=== PATIENT | female | born 1950 | race Caucasian/White ===

== ENCOUNTER → 2018-02-14 | Outpatient (CLI) | payer MEDICARE ==
--- NOTE | 2018-02-14 16:08 | XR ---
EXAMINATION TYPE: XR chest 2V DATE OF EXAM: 02/14/2018 COMPARISON: NONE HISTORY: Nicotine dependence TECHNIQUE: Frontal and lateral views of the chest are obtained. FINDINGS: There is no focal air space opacity, pleural effusion, or pneumothorax seen. The cardiac silhouette size is within normal limits. The osseous structures are intact. IMPRESSION: No acute cardiopulmonary process.
== END | disposition home or self-care (01) ==
LOC: RADXRMAIN 13:18
PROVIDERS: ATTEND Physician Assistant
DX: F17.200 Nicotine dependence, unspecified, uncomplicated (principal)
CPT/HCPCS: 71046

== ENCOUNTER → 2019-05-02 | Outpatient (CLI) | payer MEDICARE ==
--- NOTE | 2019-05-02 16:35 | XR ---
EXAMINATION TYPE: XR chest 2V DATE OF EXAM: 05/02/2019 COMPARISON: Prior chest x-ray 02/14/2018 HISTORY: Chest contusion, right-sided pain TECHNIQUE: Frontal and lateral views of the chest are obtained. FINDINGS: There is no focal air space opacity, pleural effusion, or pneumothorax seen. The cardiac silhouette size is within normal limits. The osseous structures are intact. IMPRESSION: No acute cardiopulmonary process.
== END | disposition home or self-care (01) ==
LOC: RADXRMAIN 10:38
PROVIDERS: ATTEND Physician Assistant
DX: S20.20XA Contusion of thorax, unspecified, initial encounter (principal)
CPT/HCPCS: 71046

== ENCOUNTER → 2019-12-21 | Outpatient (CLI) | payer MEDICARE | END | disposition home or self-care (01) | LOC: LABWHC1 08:53 | PROVIDERS: ATTEND Family Medicine | DX: Z20.828 Contact with and (suspected) exposure to other viral communicable diseases (principal) | CPT/HCPCS: U0003; C9803 ==

== ENCOUNTER → 2020-02-27 | Outpatient (CLI) | payer MEDICARE ==
--- NOTE | 2020-02-27 15:32 | XR ---
EXAMINATION TYPE: XR hand complete bilateral DATE OF EXAM: 02/27/2020 COMPARISON: NONE HISTORY: Pain TECHNIQUE: Three views of each hand are submitted. FINDINGS: Mild narrowing of the DIP joints of all digits noted with more moderate changes involving the fifth D IP of the right hand. There are no erosive changes. There is severe arthropathy of the first carpal m etacarpal joint of both hands. Mild radiocarpal arthropathy noted. IMPRESSION: 1. Severe first carpal metacarpal arthropathy bilaterally in a distribution most typical of osteoarth ritis.
--- NOTE | 2020-02-27 15:33 | XR ---
EXAMINATION TYPE: XR Hip Bilateral and AP pelvis DATE OF EXAM: 02/27/2020 COMPARISON: NONE HISTORY: Pain TECHNIQUE: A single AP view of the pelvis is obtained. Two views of the bilateral hip are obtained. FINDINGS: There is moderate concentric narrowing of the hip joint bilaterally. No erosive changes. D iffuse osteopenia. Osteitis pubis condensans. SI joints symmetric. No acute fracture or dislocation. IMPRESSION: 1. Diffuse osteopenia. 2. Moderate arthropathy and axial direction of the hip bilaterally. No erosive changes. Correlate for femoral acetabular impingement.
--- NOTE | 2020-02-27 15:38 | XR ---
EXAMINATION TYPE: XR cervical spine comp DATE OF EXAM: 02/27/2020 COMPARISON: NONE HISTORY: Pain TECHNIQUE: Four views are submitted. FINDINGS: The odontoid is intact. There are no compression deformities. The prevertebral soft tissue structur es are within normal limits. There is multilevel severe degenerative disc disease most marked at lev els C4-C7. There is a posterior spondylosis particularly noted at C5 4-5 and C5-C6 likely resulting i n degree of Canal stenosis. Multilevel foraminal encroachment are noted bilaterally. Slight curvature of the cervical thoracic spine. There is a slight anterolisthesis of C7 relative to T1. IMPRESSION: 1. Multilevel severe degenerative disc disease, facet arthropathy and posterior spondylosis. There is bilateral foraminal encroachment at virtually all levels with suspected canal stenosis at C4-5 and C 5-6. Consider MRI.
--- NOTE | 2020-02-27 15:39 | XR ---
EXAM TYPE: LUMBAR SPINE X RAY SERIES COMPARISON: NONE HISTORY: Pain TECHNIQUE: 3 views are submitted. FINDINGS: Alignment is anatomic. The pedicles are intact. The transverse processes are intact. There is diff use osteopenia. There is multilevel moderate degenerative disc disease most marked at levels T12-L3. Severe facet arthropathy at L5-S1 likely result in foraminal encroachment. No compression deformities . IMPRESSION: 1. Diffuse osteopenia with multilevel degenerative disc disease. Most marked involving the thoracolum bar junction and upper lumbar spine. 2. Severe facet arthropathy L5-S1 with suspected foraminal encroachment.
== END | disposition home or self-care (01) ==
LOC: RADXRMAIN 14:34
PROVIDERS: ATTEND Family Medicine
DX: M50.321 Other cervical disc degeneration at C4-C5 level (principal); M51.36 Other intervertebral disc degeneration, lumbar region; M47.812 Spondylosis without myelopathy or radiculopathy, cervical region; M47.817 Spondylosis without myelopathy or radiculopathy, lumbosacral region; M85.88 Other specified disorders of bone density and structure, other site; M19.041 Primary osteoarthritis, right hand
CPT/HCPCS: 72050; 72100; 73521

== ENCOUNTER → 2020-04-03 | Outpatient (CLI) | payer MEDICARE ==
--- NOTE | 2020-04-03 22:50 | MR ---
EXAMINATION TYPE: MR cspine/lspine wo con DATE OF EXAM: 04/03/2020 COMPARISON: Cervical and Lumbar spine x-ray February 27, 2020. HISTORY: Neck and lower back pain, radiates into both hips TECHNIQUE: Multiplanar, multisequence imaging of the cervical and lumbar spine are performed without IV contrast. FINDINGS: C-SPINE: FINDINGS: Coronal images show slight levoconvex scoliosis centered in the mid to lower cervical spine . Sagittal images of the cervical spine show the craniocervical junction to appear within normal limi ts. There is some generalized canal diameter narrowing with some AP cord diameter narrowing at severa l levels, no abnormal cord signal noted. There is slight grade 1 anterolisthesis C4 on C5 with more p rominent grade 1 retrolisthesis C5 on C6 and C6 on C7. The vertebral body heights are normal. Modera te to advanced disc space narrowing and spurring C4-C5 through C6-C7 levels. Heterogeneous moderate t ype II endplate changes anterior C6-C7 level with more heterogeneous Modic type I and III changes not ed at C4-C5 and C5-C6 levels. Axial images at C2-C3 level levels show uncovertebral facet degenerative change on the left causing m ild narrowing. Axial images at C3-C4 level shows broad-based posterior disc protrusion effacing anterior thecal sac up to ventral surface of spinal cord which is slightly indented, there is uncovertebral facet degener ative changes bilaterally with mild left greater than right neural foraminal narrowing. Axial images at C4-C5 level showed broad based posterior disc protrusion effacing anterior thecal sac up to ventral surface of the spinal cord which is slightly flattened and causing advanced right and moderate to advanced left-sided neural foraminal narrowing due to uncovertebral and facet spurring. Axial images at the C5-C6 level show spondylitic listhesis with broad-based posterior disc protrusion effacing anterior thecal sac up to ventral surface of spinal cord with moderate to advanced bilatera l neural foraminal narrowing. Axial images at C6-C7 level show spondylolisthesis with broad-based posterior disc protrusion facing anterior thecal sac up to ventral surface of spinal cord and causing advanced left and mild right-kathi ed neural foraminal narrowing. Axial images at C7-T1 level are within normal limits. IMPRESSION: Multilevel spondylolisthesis and degenerative changes in the cervical spine greatest C3-C 4 through the C6-C7 levels. Most prominent spinal canal stenosis noted C4-C5 level. Further details a s discussed above. L-SPINE: Sagittal images of the lumbar spine show vertebral body heights and alignment to appear satisfactory. Multilevel disc desiccation with disc space heights are fairly well maintained. The conus medullari s is normal in position and signal ending at mid L1 level. The bone marrow signal intensity is withi n normal limits. Mild anterior spurring in the upper lumbar spine. Axial images at T12-L1 level show mild broad disc bulge mildly effaces the anterior thecal sac with m ild facet arthropathy and ligamentum flavum hypertrophy effacing posterior lateral thecal sac. Patent bilateral neural foramina. Axial images at L1-L2 level mild facet arthropathy bilaterally. Axial images at L2-L3 level are within normal limits. Axial images at L3-L4 level show [id number] facet arthropathy and ligament flavum hypertrophy e ffacing posterior lateral thecal sac on image 13. Patent bilateral neural foramina. Axial images at L4-L5 level moderate facet degenerative changes the ligamenta flava hypertrophy. Mild broad disc bulge is present. Patent bilateral neural foramina. Axial images at the L5-S1 levels mild/moderate facet arthropathy bilaterally. Spinal canal is preserv ed. Patent bilateral neural foramina. There are subcentimeter rounded T2 hyperintense lesions seen throughout the visualized liver felt to reflect thin-walled cysts. Paraspinal muscle bulk is preserved. IMPRESSION: [id number] multilevel degenerative changes in the lumbar spine as detailed above.
== END | disposition home or self-care (01) ==
LOC: RADMRIMAIN 19:18
PROVIDERS: ATTEND Family Medicine
DX: M48.02 Spinal stenosis, cervical region (principal); M99.71 Connective tissue and disc stenosis of intervertebral foramina of cervical region; M50.21 Other cervical disc displacement, high cervical region; M43.12 Spondylolisthesis, cervical region; M47.812 Spondylosis without myelopathy or radiculopathy, cervical region; M47.816 Spondylosis without myelopathy or radiculopathy, lumbar region; M47.817 Spondylosis without myelopathy or radiculopathy, lumbosacral region; M47.815 Spondylosis without myelopathy or radiculopathy, thoracolumbar region; M41.82 Other forms of scoliosis, cervical region
CPT/HCPCS: 72141; 72148

== ENCOUNTER → 2020-04-24 | Outpatient (CLI) | payer MEDICARE ==
--- NOTE | 2020-04-24 11:56 | US ---
EXAMINATION TYPE: US liver DATE OF EXAM: 04/24/2020 COMPARISON: NONE CLINICAL HISTORY: K76.9 liver disease, unspecified. EXAM MEASUREMENTS: Liver Length: 14.3 cm Gallbladder Wall: 0.1 cm CBD: 0.5 cm Right Kidney: 9.9 x 3.3 x 4.7 cm Pancreas: partially obscured by bowel gas Liver: small liver cysts noted, largest measuring 2.0 x 0.9 x 1.5cm and 0.8 x 0.7 x 1.0cm Gallbladder: wnl Evidence for sonographic Pastrana's sign: no CBD: wnl Right Kidney: No hydronephrosis or masses seen There is no ascites. IMPRESSION: The liver echotexture is somewhat coarse which may be indicative of underlying hepatocell ular disease. Liver may be enlarged, measurement is thought to be under represented. There are liver cysts present.
== END | disposition home or self-care (01) ==
LOC: RADUSWWP 08:20
PROVIDERS: ATTEND Family Medicine
DX: K76.89 Other specified diseases of liver (principal); R93.2 Abnormal findings on diagnostic imaging of liver and biliary tract
CPT/HCPCS: 76705

== ENCOUNTER → 2020-05-13 | Outpatient (CLI) | payer MEDICARE ==
--- NOTE | 2020-05-13 15:39 | BD ---
EXAMINATION TYPE: Axial Bone Density DATE OF EXAM: 05/13/2020 COMPARISON: NONE CLINICAL HISTORY: Height: 62 Weight: 161.4 FRAX RISK QUESTIONS: Alcohol (3 or more units per day): no Family History (Parent hip fracture): no Glucocorticoids (More than 3mos): no (Ex: prednisone, prednisolone, methylprednisolone, dexamethasone, and hydrocortisone). History of Fracture in Adulthood: yes Secondary Osteoporosis: 1. Type 1 Diabetes: no 2. Hyperthyroidism: no 3. Menopause before 45: yes 4. Malnutrition: no 5. Chronic liver disease: no Rheumatoid Arthritis: no Current Tobacco Use: yes RISK FACTORS HISTORY OF: History of Wrist Fracture: left When: 10 years ago Family History of Osteoporosis: no Active: yes Diet low in dairy products/other sources of calcium: yes Postmenopausal woman: hysterectomy age 40 Lost more than 2 inches in height since high school: no MEDICATIONS: cholesterol, blood pressure, anti depressant Additional History: EXAM MEASUREMENTS: Bone mineral densitometry was performed using the [employer]. Bone mineral density as measured about the Lumbar spine is: ----- L1-L4(G/cm2): 1.089 T Score Values are as follows: ----- L2: -0.7 ----- L3: -0.7 ----- L4: -1.0 ----- L1-L4: -0.8 Bone mineral density : baseline Bone mineral density about the R hip (g/cm2): 1.052 Bone mineral density about the L hip (g/cm2): 0.909 T Score values are as follows: -----R Neck: 0.1 -----L Neck: -0.9 -----R Total: 0.2 -----L Total: -0.2 Bone mineral density : baseline IMPRESSION: No evidence for osteoporosis or osteopenia. NOTE: T-SCORE=SD OF THE YOUNG ADULT MEAN.
--- NOTE | 2020-05-21 09:37 | MM ---
Reason for exam: screening (asymptomatic). Last mammogram was performed 5 years and 5 months ago. History: Patient is postmenopausal. Physical Findings: A clinical breast exam by your physician is recommended on an annual basis and results should be correlated with mammographic findings. MG 3D Screening Mammo W/Cad Bilateral CC and MLO view(s) were taken. Prior study comparison: December 12, 2014, mammogram, performed at [place]. September 08, 2011, mammogram, performed at [place]. There are scattered fibroglandular densities. There is chronic nodularity bilaterally. There is no discrete abnormality. ASSESSMENT: Benign, BI-RAD 2 RECOMMENDATION: Routine screening mammogram of both breasts in 1 year.
== END | disposition home or self-care (01) ==
LOC: RADMAMWWP 14:27
PROVIDERS: ATTEND Family Medicine
DX: Z12.31 Encounter for screening mammogram for malignant neoplasm of breast (principal); Z78.0 Asymptomatic menopausal state
CPT/HCPCS: 77063; 77067; 77080

== ENCOUNTER → 2020-06-20 | Outpatient (CLI) | payer MEDICARE ==
[2020-06-21 01:31] LABS: ALT 23 U/L (8-44); AST 17 U/L (13-35); Albumin/Globulin Ratio 2.67 (1.60-3.17); Alkaline Phosphatase 164 U/L (41-126); Bilirubin, Conjugated <0.20 mg/dL (0.20-0.40); GGT <15 U/L (0-38); Globulin 1.8 g/dL (1.6-3.3); Total Bilirubin 0.3 mg/dL (0.3-1.2); Total Protein 6.6 g/dL (6.2-8.2)
[2020-06-21 03:33] LABS: Hepatitis B Surface Antigen Non-Reactive (Non-Reactive); Hepatitis C IgG Antibody Non-Reactive (Non-Reactive)
== END | disposition home or self-care (01) ==
LOC: LABWHC1 14:41
PROVIDERS: ATTEND Nurse Practitioner
DX: R74.8 Abnormal levels of other serum enzymes (principal)
CPT/HCPCS: 36415; 80076; 82977; 83516; 86803; 87340

== ENCOUNTER → 2020-07-19 | Outpatient (CLI) | payer MEDICARE | END | disposition home or self-care (01) | LOC: LABWHC1 11:51 | PROVIDERS: ATTEND Nurse Practitioner | DX: R74.8 Abnormal levels of other serum enzymes (principal) | CPT/HCPCS: 36415 ==

== ENCOUNTER → 2021-03-27 | Outpatient (CLI) | payer MEDICARE ==
--- NOTE | 2021-03-27 10:41 | US ---
EXAMINATION TYPE: US duplex aorta DATE OF EXAM: 03/27/2021 COMPARISON: NONE CLINICAL HISTORY: Z13.6 Encounter for screening for cardiovascular. Current smoker. No HTN. No chol esterol. No family history of AAA. EXAM MEASUREMENTS: Abdominal Aorta: Proximal: 2.1 x 2.3 cm Mid: 1.2 x 1.3 cm Distal: 1.3 x 1.1 cm Bifurcation: Right- 0.9 x 0.6 cm Left- 1.0 x 0.6 cm No AAA visualized at time of scan. Aorta is Successfully visualized through the bifurcation. IMPRESSION: No ultrasound evidence for greater than 3.0 cm AAA
== END | disposition home or self-care (01) ==
LOC: RADUSWWP 07:05
PROVIDERS: ATTEND Family Medicine
DX: Z13.6 Encounter for screening for cardiovascular disorders (principal)
CPT/HCPCS: 93979

== ENCOUNTER → 2021-05-15 | Outpatient (CLI) | payer MEDICARE ==
--- NOTE | 2021-05-19 11:55 | MM ---
Reason for exam: screening (asymptomatic). Last mammogram was performed 1 year ago. History: Patient is postmenopausal. Physical Findings: A clinical breast exam by your physician is recommended on an annual basis and results should be correlated with mammographic findings. MG 3D Screening Mammo W/Cad Bilateral CC and MLO view(s) were taken. Prior study comparison: May 13, 2020, bilateral MG 3d screening mammo w/cad. There are scattered fibroglandular densities. Asymmetry posterior central right MLO is more defined. ASSESSMENT: Incomplete: need additional imaging evaluation, BI-RAD 0 RECOMMENDATION: Special view mammogram of the right breast. (3D) If lesion persists on supplemental views, image directed ultrasound is recommended. [facility] will attempt to contact patient to return for supplemental views and ultrasound if indicated.
== END | disposition home or self-care (01) ==
LOC: RADMAMWWP 08:52
PROVIDERS: ATTEND Family Medicine
DX: Z12.31 Encounter for screening mammogram for malignant neoplasm of breast (principal); Z78.0 Asymptomatic menopausal state
CPT/HCPCS: 77063; 77067

== ENCOUNTER 2021-06-25 15:05 | Emergency (ER) | payer MEDICARE ==
[2021-06-25] MEDS ORDERED: SODIUM CHLORIDE 0.9% 1,000 ML IV STA ×2 (15:50→16:46)
[2021-06-25] MEDS ORDERED: ONDANSETRON 4 MG/2 ML VIAL IVP STA (15:50)
[2021-06-25] MEDS ORDERED: diphenhydrAMINE 50 MG/ML 1 ML VIAL IVP STA (15:50)
[2021-06-25] MEDS ORDERED: MAG HYDROX/AL HYDROX/SIMETH 30 ML CUP PO STA (15:51)
[2021-06-25] MEDS ORDERED: FAMOTIDINE 20 MG/2 ML VIAL IV STA (15:52)
--- NOTE | 2021-06-25 16:04 | ED ---
General Adult HPI - General Chief complaint: Nausea/Vomiting/Diarrhea Stated complaint: vomiting Time Seen by Provider: 06/25/21 15:23 Source: patient, RN notes reviewed, old records reviewed Mode of arrival: ambulatory Limitations: no limitations - History of Present Illness Initial comments: Patient is a 71-year-old female with past medical history remarkable for tobacco use, hypertension presents emergency Department complaining of nausea, vomiting, respiratory symptoms. Patient had upper respiratory symptoms since last Wednesday. She has been tested for Covid twice. Once it was negative, and the second one is still pending. She was not vaccinated for COVID-19. States that for the last 2-3 days, she has been having nausea and nonbilious emesis as well. This is her multiple times. She states "I cannot hold anything down." Presents over concern for dehydration. She denies any chest pain, shortness breath, abdominal pain, diarrhea, urinary complaints. Denies any headaches. Does endorse some mild fatigue. His no other acute complaints at this time. She does have upper respiratory symptoms, including a cough productive of green sputum as well as nasal congestion. - Related Data Home Medications Medication Instructions Recorded Confirmed Atorvastatin Calcium [Lipitor] 20 mg PO DAILY 06/25/21 06/25/21 Calcium Carbonate [Calcium] 600 mg PO DAILY 06/25/21 06/25/21 Celecoxib [CeleBREX] 200 mg PO HS 06/25/21 06/25/21 Multivitamins, Thera [Multivitamin 1 tab PO DAILY 06/25/21 06/25/21 (formulary)] Venlafaxine HCl ER [Effexor Xr] 150 mg PO DAILY 06/25/21 06/25/21 hydroCHLOROthiazide 25 mg PO DAILY 06/25/21 06/25/21 lisinopriL [Zestril] 20 mg PO DAILY 06/25/21 06/25/21 Previous Rx's Medication Instructions Recorded Albuterol Inhaler [Ventolin Hfa 1 puff INHALATION RT-QID #8 gm 06/25/21 Inhaler] Doxycycline Hyclate 100 mg PO BID 7 Days #14 capsule 06/25/21 Ondansetron Odt [Zofran Odt] 4 mg PO Q8HR PRN #3 tab 06/25/21 predniSONE [Deltasone] 40 mg PO DAILY 5 Days #10 tab 06/25/21 Allergies Allergy/AdvReac Type Severity Reaction Status Date / Time Penicillins AdvReac Nausea & Verified 06/25/21 16:02 Vomiting Review of Systems ROS Statement: Those systems with pertinent positive or pertinent negative responses have been documented in the HPI. Review of Systems: CONST: Denies fever EYES: Denies blurry vision ENT: Endorses nasal congestion C/V: Denies Chest pain RESP: Denies shortness of breath GI: Endorses nausea. Denies abdominal pain. : Denies dysuria SKIN: Denies rash. MSK: Denies joint pain. NEURO: Denies headache ROS Other: All systems not noted in ROS Statement are negative. Past Medical History Past Medical History: No Reported History History of Any Multi-Drug Resistant Organisms: None Reported Past Surgical History: Section, Hysterectomy Past Psychological History: Anxiety, Depression Smoking Status: Current every day smoker Past Alcohol Use History: None Reported Past Drug Use History: None Reported General Exam - General Exam Comments Initial Comments: General: Appears in no acute distress. HEAD: Normal with no signs of head trauma. EYES: PERRLA, EOMI, conjunctiva normal, no discharge. ENT: Hearing grossly intact, normal oropharynx. Nasal congestion. No sinus tenderness to palpation. Mildly dry mucous membranes. RESPIRATORY: Clear breath sounds bilaterally. No wheezes, rales, or rhonchi. Not hypoxic. No increased work of breathing. C/V: Regular rate and rhythm. S1 and S2 auscultated, no edema, peripheral pulses 2+ and intact throughout ABD: Abd is soft, nontender, nondistended. No guarding. No peritoneal signs. EXT: Normal range of motion, no obvious deformity SKIN: No rashes or lesions observed on exposed skin. NEURO: Alert and oriented 4. Limitations: no limitations Course Vital Signs 06/25/21 15:15 Temperature 98 F Pulse Rate 104 H Respiratory 18 Rate Blood Pressure 149/70 O2 Sat by Pulse 98 Oximetry Medical Decision Making - Medical Decision Making Based on the patient's presentation and physical exam, I'm concerned for infectious etiology for her current symptoms. However would like to obtain screening EKG in addition to abdominal laboratory studies to assess for dehydration. We also obtain a two-view chest x-ray. She'll be given a 1 L fluid bolus as well as IV Zofran, Pepcid, Benadryl and Maalox. She was in agreement this plan. We will check her for COVID-19 influenza as well. Chest x-ray shows no acute cardiopulmonary process. Laboratory studies are remarkable for a leukocytosis of 19.9, however she does appear to be hemoconcentrated likely secondary to dehydration as she also has a leukocytosis of 455, as well as an higher level hemoglobin of 13.5. Electrolytes are within normal limits. Alk phos is mildly elevated 145. LFTs are otherwise unremarkable. Normal bilirubin. Urinalysis unremarkable. Patient is Covid, flu negative. Remainder of the labs are unremarkable. On reevaluation, patient is feeling improved. She has tolerated by mouth intake. I did discuss with her abdomen. She was dehydrated. She likely has a viral syndrome as well as bronchitis. She was in agreement. She would like to go home. I believe this is reasonable. We will treat her for bronchitis with doxycycline and provide her with a dose prior to discharge. She was on a Z-Mina but she states this wasn't improving. I instructed her to stop taking the azithromycin. She also be given a dose of steroids prior to discharge, as well as a prescription for steroids, doxycycline, albuterol. She'll be given a prescription for ODT Zofran. She is no other acute complaints at this time. She went to go home. I'll provide her strict return precautions. I will provide the patient with a prescription for 40 mg prednisone daily for 5 days, doxycycline 100 mg twice a day for 7 days, albuterol inhaler, ODT Zofran. I instructed the patient to follow up with their PCP in the next 3 days. I explained that the patient should return to the emergency department if they experience any worsening symptoms. Strict return precautions were discussed with the patient. The patient expressed understanding of these instructions. I answered all questions that the patient had. The patient was discharged home in good condition with their prescriptions and follow up information. - Lab Data Result diagrams: 06/25/21 16:11 06/25/21 16:11 Lab Results 06/25/21 06/25/21 06/25/21 Range/Units 16:11 16:11 16:11 WBC 19.9 H (3.8-10.6) k/uL RBC 4.48 (3.80-5.40) m/uL Hgb 13.5 (11.4-16.0) gm/dL Hct 40.1 (34.0-46.0) % MCV 89.4 (80.0-100.0) fL MCH 30.1 (25.0-35.0) pg MCHC 33.6 (31.0-37.0) g/dL RDW 12.3 (11.5-15.5) % Plt Count 455 H (150-450) k/uL MPV 7.2 Neutrophils % 80 % Lymphocytes % 11 % Monocytes % 8 % Eosinophils % 0 % Basophils % 0 % Neutrophils # 15.8 H (1.3-7.7) k/uL Lymphocytes # 2.2 (1.0-4.8) k/uL Monocytes # 1.5 H (0-1.0) k/uL Eosinophils # 0.1 (0-0.7) k/uL Basophils # 0.1 (0-0.2) k/uL Sodium 140 (137-145) mmol/L Potassium 3.8 (3.5-5.1) mmol/L Chloride 105 (98-107) mmol/L Carbon Dioxide 23 (22-30) mmol/L Anion Gap 12 mmol/L BUN 22 H (7-17) mg/dL Creatinine 0.99 (0.52-1.04) mg/dL Est GFR (CKD-EPI)AfAm 67 (>60 ml/min/1.73 sqM) Est GFR (CKD-EPI)NonAf 58 (>60 ml/min/1.73 sqM) Glucose 137 H (74-99) mg/dL Calcium 9.6 (8.4-10.2) mg/dL Total Bilirubin 0.4 (0.2-1.3) mg/dL AST 29 (14-36) U/L ALT 20 (4-34) U/L Alkaline Phosphatase 145 H (38-126) U/L Total Protein 7.2 (6.3-8.2) g/dL Albumin 4.2 (3.5-5.0) g/dL Amylase 46 (30-110) U/L Lipase 90 (23-300) U/L Urine Color Urine Appearance (Clear) Urine pH (5.0-8.0) Ur Specific [place] (1.001-1.035) Urine Protein (Negative) Urine Glucose (UA) (Negative) Urine Ketones (Negative) Urine Blood (Negative) Urine Nitrite (Negative) Urine Bilirubin (Negative) Urine Urobilinogen (<2.0) mg/dL Ur Leukocyte Esterase (Negative) Urine RBC (0-5) /hpf Urine WBC (0-5) /hpf Ur Squamous Epith Cells (0-4) /hpf Urine Bacteria (None) /hpf Urine Mucus (None) /hpf Coronavirus (PCR) (Not Detectd) Influenza Type A RNA Not Detected (Not Detectd) Influenza Type B (PCR) Not Detected (Not Detectd) 06/25/21 06/25/21 Range/Units 16:11 17:14 WBC (3.8-10.6) k/uL RBC (3.80-5.40) m/uL Hgb (11.4-16.0) gm/dL Hct (34.0-46.0) % MCV (80.0-100.0) fL MCH (25.0-35.0) pg MCHC (31.0-37.0) g/dL RDW (11.5-15.5) % Plt Count (150-450) k/uL MPV Neutrophils % % Lymphocytes % % Monocytes % % Eosinophils % % Basophils % % Neutrophils # (1.3-7.7) k/uL Lymphocytes # (1.0-4.8) k/uL Monocytes # (0-1.0) k/uL Eosinophils # (0-0.7) k/uL Basophils # (0-0.2) k/uL Sodium (137-145) mmol/L Potassium (3.5-5.1) mmol/L Chloride (98-107) mmol/L Carbon Dioxide (22-30) mmol/L Anion Gap mmol/L BUN (7-17) mg/dL Creatinine (0.52-1.04) mg/dL Est GFR (CKD-EPI)AfAm (>60 ml/min/1.73 sqM) Est GFR (CKD-EPI)NonAf (>60 ml/min/1.73 sqM) Glucose (74-99) mg/dL Calcium (8.4-10.2) mg/dL Total Bilirubin (0.2-1.3) mg/dL AST (14-36) U/L ALT (4-34) U/L Alkaline Phosphatase (38-126) U/L Total Protein (6.3-8.2) g/dL Albumin (3.5-5.0) g/dL Amylase (30-110) U/L Lipase (23-300) U/L Urine Color Yellow Urine Appearance Cloudy H (Clear) Urine pH 7.5 (5.0-8.0) Ur Specific [place] 1.029 (1.001-1.035) Urine Protein 1+ H (Negative) Urine Glucose (UA) Negative (Negative) Urine Ketones Negative (Negative) Urine Blood Trace H (Negative) Urine Nitrite Negative (Negative) Urine Bilirubin Negative (Negative) Urine Urobilinogen 2.0 (<2.0) mg/dL Ur Leukocyte Esterase Negative (Negative) Urine RBC 8 H (0-5) /hpf Urine WBC 4 (0-5) /hpf Ur Squamous Epith Cells 6 H (0-4) /hpf Urine Bacteria Rare H (None) /hpf Urine Mucus Occasional H (None) /hpf Coronavirus (PCR) Not Detected (Not Detectd) Influenza Type A RNA (Not Detectd) Influenza Type B (PCR) (Not Detectd) - EKG Data -: EKG Interpreted by Me EKG Comments: 12-lead Electrocardiogram Interpretation Note EKG was reviewed and interpreted by myself. 12-lead ECG performed at 1632 is interpreted by me as revealing normal sinus rhythm at a rate of 87 beats per minute. [place] is normal. DC interval is 144 ms, QRS duration 60 ms, QTc is 466 ms.. There were no ST or T wave abnormalities to suggest myocardial ischemia or injury. R wave progression across the precordium was satisfactory. By my interpretation this EKG is non-diagnostic for acute ischemia. Disposition Clinical Impression: Bronchitis, Nausea and vomiting, Dehydration Disposition: HOME SELF-CARE Condition: Good Instructions (If sedation given, give patient instructions): Acute Bronchitis (ED), Acute Nausea and Vomiting (ED) Prescriptions: predniSONE [Deltasone] 40 mg PO DAILY 5 Days #10 tab Doxycycline Hyclate 100 mg PO BID 7 Days #14 capsule Albuterol Inhaler [Ventolin Hfa Inhaler] 1 puff INHALATION RT-QID #8 gm Ondansetron Odt [Zofran Odt] 4 mg PO Q8HR PRN #3 tab PRN Reason: Nausea Is patient prescribed a controlled substance at d/c from ED?: No Referrals: Darryl Fried MD [Primary Care Provider] - 1-2 days
[2021-06-25 16:21] LABS: Basophils # (A) 0.1 k/uL (0-0.2); Basophils % (A) 0 %; Eosinophils # (A) 0.1 k/uL (0-0.7); Eosinophils % (A) 0 %; HCT 40.1 % (34.0-46.0); HGB 13.5 gm/dL (11.4-16.0); Lymphocytes # (A) 2.2 k/uL (1.0-4.8); Lymphocytes % (A) 11 %; MCH 30.1 pg (25.0-35.0); MCHC 33.6 g/dL (31.0-37.0); MCV 89.4 fL (80.0-100.0); Mean Platelet Volume 7.2; Monocytes # (A) 1.5 k/uL (0-1.0); Monocytes % (A) 8 %; Neutrophils # (A) 15.8 k/uL (1.3-7.7); Neutrophils % (A) 80 %; Platelet Count 455 k/uL (150-450); RBC 4.48 m/uL (3.80-5.40); RDW 12.3 % (11.5-15.5); WBC 19.9 k/uL (3.8-10.6)
[2021-06-25 16:30] LABS: Albumin 4.2 g/dL (3.5-5.0); Calcium 9.6 mg/dL (8.4-10.2); Potassium 3.8 mmol/L (3.5-5.1); Total Bilirubin 0.4 mg/dL (0.2-1.3); Total Protein 7.2 g/dL (6.3-8.2)
--- NOTE | 2021-06-25 16:55 | XR ---
EXAMINATION TYPE: XR chest 2V DATE OF EXAM: 06/25/2021 COMPARISON: 05/02/2019 HISTORY: Chest pain TECHNIQUE: 2 views FINDINGS: Heart and mediastinum are normal. Lungs are clear. Diaphragm is normal. Bony thorax is inta ct. Pulmonary vascularity is normal. IMPRESSION: Normal chest. No change.
[2021-06-25 17:36] LABS: Appearance,Urine Cloudy (Clear); Bacteria,Urine Rare /hpf; Bilirubin,Urine Negative (Negative); Blood,Urine Trace (Negative); Color,Urine Yellow; Glucose,Urine (UA) Negative (Negative); Ketones,Urine Negative (Negative); Leukocyte Esterase,Urine Negative (Negative); Mucus,Urine Occasional /hpf; Nitrite,Urine Negative (Negative); PH, Urine 7.5 (5.0-8.0); Protein,Urine 1+ (Negative); RBC,Urine 8 /hpf (0-5); Specific Gravity,Urine 1.029 (1.001-1.035); Squamous Epithelial Cell,Urine 6 /hpf (0-4); WBC,Urine 4 /hpf (0-5)
[2021-06-25] MEDS ORDERED: predniSONE 50 MG TAB PO STA (17:45)
[2021-06-25] MEDS ORDERED: DOXYCYCLINE 100 MG CAP PO STA (17:45)
[2021-06-25] MEDS: ONDANSETRON ODT 4 MG TAB PO SCH (18:04)
[2021-06-25 18:18] VITALS: BP 128/79; PULSE 78; RESP 16; TEMP 98.2
== END 2021-06-25 18:17 | disposition home or self-care (01) ==
LOC: EC 15:05
DX: J40 Bronchitis, not specified as acute or chronic (principal); E86.0 Dehydration; F17.200 Nicotine dependence, unspecified, uncomplicated; Z20.822 Contact with and (suspected) exposure to COVID-19; Z88.0 Allergy status to penicillin
CPT/HCPCS: 36415; 93005; 80053; 82150; 83690; 85025; 81001; 87502; 87635; 71046; 96361; 96374; 96375; 99284; J1200; J2405; J7512

== ENCOUNTER 2022-06-16 15:18 | Emergency (ER) | payer MEDICARE ==
[2022-06-16 15:28] VITALS: TEMP 98
[2022-06-16] MEDS ORDERED: SODIUM CHLORIDE 0.9% 1,000 ML IV ONE (16:16)
[2022-06-16] MEDS ORDERED: ONDANSETRON 4 MG/2 ML VIAL IVP STA (16:16)
--- NOTE | 2022-06-16 17:05 | XR ---
EXAMINATION TYPE: XR chest 2V DATE OF EXAM: 06/16/2022 4:54 PM COMPARISON: Chest radiographs from TECHNIQUE: XR chest 2V Frontal and lateral views of the chest. CLINICAL INDICATION:Female, 72 years old with history of difficulty breathing; FINDINGS: Lungs/Pleura: There is no evidence of pleural effusion, focal consolidation, or pneumothorax. Pulmonary vascularity: Pulmonary vascular congestion. Heart/mediastinum: Cardiomediastinal silhouette is enlarged and stable. Musculoskeletal: No acute osseous pathology. IMPRESSION: Cardiomegaly and mild pulmonary vascular congestion. Correlate with BNP for congestive heart failure.
[2022-06-16 17:12] LABS: Partial Thromboplastin Time 23.8 sec (22.0-30.0); Prothrombin Time 10.6 sec (9.0-12.0)
[2022-06-16 17:14] LABS: Albumin 4.4 g/dL (3.5-5.0); Calcium 8.8 mg/dL (8.4-10.2); Potassium 4.2 mmol/L (3.5-5.1); Total Bilirubin 0.4 mg/dL (0.2-1.3); Total Protein 7.4 g/dL (6.3-8.2)
--- NOTE | 2022-06-16 17:37 | ED ---
SOB HPI - General Chief Complaint: Shortness of Breath Stated Complaint: sinus infection, cold Time Seen by Provider: 06/16/22 16:00 Source: patient Mode of arrival: ambulatory Limitations: no limitations - History of Present Illness Initial Comments: 72-year-old female past history of hypertension, hyperlipidemia who presents emergency Department with shortness of breath, nausea and vomiting. She reports that she has been sick since the first of the year. She has seen her primary care doctor twice and has gone through 2 [facility]. States that her symptoms are still not improving. She has nausea with vomiting. Nonproductive cough, sinus pressure. She denies any sick contacts. No abdominal pain. No chest pain. No history of coronary disease. No history of COPD or asthma. She does admit to chills. No recorded fevers. She has not been taking any other medications for her symptoms. No other alleviating, precipitating or modifying factors - Related Data Home Medications Medication Instructions Recorded Confirmed Atorvastatin Calcium [Lipitor] 20 mg PO DAILY 06/25/21 06/16/22 Venlafaxine HCl ER [Effexor Xr] 150 mg PO DAILY 06/25/21 06/16/22 hydroCHLOROthiazide 25 mg PO DAILY 06/25/21 06/16/22 lisinopriL [Zestril] 20 mg PO DAILY 06/25/21 06/16/22 Diclofenac Sodium [Voltaren] 50 mg PO BID 06/16/22 06/16/22 Pantoprazole [Protonix] 40 mg PO DAILY 06/16/22 06/16/22 Previous Rx's Medication Instructions Recorded Nirmatrelvir/Ritonavir [Paxlovid 1 each PO BID #1 packet 06/16/22 150-100 mg Pack (Eua)] Ondansetron Odt [Zofran Odt] 4 mg PO Q8HR PRN #15 tab 06/16/22 dexAMETHasone [Decadron] 6 mg PO DAILY #5 tablet 06/16/22 Allergies Allergy/AdvReac Type Severity Reaction Status Date / Time Penicillins AdvReac Nausea & Verified 06/16/22 18:16 Vomiting Review of Systems ROS Statement: Those systems with pertinent positive or pertinent negative responses have been documented in the HPI. ROS Other: All systems not noted in ROS Statement are negative. Past Medical History Past Medical History: GERD/Reflux, Hyperlipidemia, Hypertension History of Any Multi-Drug Resistant Organisms: None Reported Past Surgical History: Section, Hysterectomy Past Psychological History: Anxiety, Depression Smoking Status: Current every day smoker Past Alcohol Use History: None Reported Past Drug Use History: None Reported General Exam Limitations: no limitations General appearance: alert, in no apparent distress Head exam: Present: atraumatic, normocephalic, normal inspection Eye exam: Present: normal appearance, PERRL, EOMI. Absent: scleral icterus, conjunctival injection, periorbital swelling ENT exam: Present: normal exam, mucous membranes moist Neck exam: Present: normal inspection. Absent: tenderness, meningismus, lymphadenopathy Respiratory exam: Present: normal lung sounds bilaterally. Absent: respiratory distress, wheezes, rales, rhonchi, stridor Cardiovascular Exam: Present: regular rate, normal rhythm, normal heart sounds. Absent: systolic murmur, diastolic murmur, rubs, gallop, clicks GI/Abdominal exam: Present: soft, normal bowel sounds. Absent: distended, tenderness, guarding, rebound, rigid Extremities exam: Present: normal inspection, full ROM, normal capillary refill. Absent: tenderness, pedal edema, joint swelling, calf tenderness Back exam: Present: normal inspection Neurological exam: Present: alert, oriented X3, CN II-XII intact Psychiatric exam: Present: normal affect, normal mood Skin exam: Present: warm, dry, intact, normal color. Absent: rash Course Vital Signs 06/16/22 06/16/22 06/16/22 15:24 18:32 19:58 Temperature 98 F Pulse Rate 94 78 80 Respiratory 16 19 16 Rate Blood Pressure 119/75 118/57 127/57 O2 Sat by Pulse 97 99 98 Oximetry Medical Decision Making - Medical Decision Making Was pt. sent in by a medical professional or institution? No Did you speak to anyone other than the patient for history? No Did you review nursing and triage notes? yes and I agree Were old charts reviewed? no Differential Diagnosis? MDM Differential Fever: Pneumonia, viral URI, endocarditis, myocarditis, pericarditis, otitis, sinusitis, peritonsillar Abscess, retropharyngeal Abscess, epiglottitis, peritonitis, appendicitis, Rashida cystitis, diverticulitis, hepatitis, colitis, UTI, PID, TOA, pyelonephritis, prostatitis, epididymitis, meningitis, encephalitis, pulmonary embolism, CVA, thyroid storm, pancreatitis, adrenal crisis, cavernous sinus thrombosis this is not meant to be an all-inclusive list. EKG interpreted by me (3pts min.)? yes X-rays interpreted by me (1pt min.)? yes CT interpreted by me (1pt min.)? yes U/S interpreted by me (1pt. min.)? no What testing was considered but not performed? (CT, X-rays, U/S, labs)? Why? none What meds were considered but not given? Why? none Did you discuss the management of the patient with other professionals? no Did you reconcile home meds? no Was smoking cessation discussed for >3mins.? no Was critical care preformed (if so, how long)? no Were there social determinants of health that impacted care today? How? (Homelessness, low income, unemployed, alcoholism, drug addiction, transportation, low edu. Level, literacy, decrease access to med. care, fci, rehab)? no Was there de-escalation of care discussed even if they declined? (Discuss DNR or withdrawal of care, Hospice)? no What co-morbidities impacted this encounter? (DM, HTN, Smoking, COPD, CAD, Cancer, CVA, Hep., AIDS, mental health diagnosis, sleep apnea, morbid obesity)? none Was patient admitted / discharged? Upon arrival patient was placed into room 13. Her history and physical exam is performed. IV access was established and the patient was given 4 mg of Zofran for nausea. She is also given a liter bolus of normal saline. Laboratory studies are conducted. Patient is swabbed for Covid and influenza. Creatinine mildly elevated at 1.3. Covid is positive. Chest x-ray is concerning for pulmonary vascular congestion. CT performed due to elevated d-dimer which demonstrates no acute process. Results are discussed with the patient. As the patient has had worsening symptoms over the past couple of days I did recommend a course of Paxlovid and decadron. Instructed to eat before she takes a Decadron. She is to increase fluid intake. Follow-up with her doctor and return for any new or worsening symptoms. Patient agreeable treatment she was discharged in stable condition Undiagnosed new problem with uncertain prognosis? yes Drug Therapy requiring intensive monitoring for toxicity (Heparin, Nitro, Insulin, Cardizem)? no Were any procedures done? no Diagnosis/symptom? reported n/v, acute covid infection Acute, or Chronic, or Acute on Chronic? acute Uncomplicated (without systemic symptoms) or Complicated (systemic symptoms)? complicated Side effects of treatment? allergic reaction Exacerbation, Progression, or Severe Exacerbation] no Poses a threat to life or bodily function? no - Lab Data Result diagrams: 06/16/22 16:35 06/16/22 16:35 Lab Results 06/16/22 06/16/22 06/16/22 Range/Units 16:35 16:35 16:35 WBC 10.3 (3.8-10.6) k/uL RBC 4.77 (3.80-5.40) m/uL Hgb 14.1 (11.4-16.0) gm/dL Hct 41.7 (34.0-46.0) % MCV 87.4 (80.0-100.0) fL MCH 29.6 (25.0-35.0) pg MCHC 33.9 (31.0-37.0) g/dL RDW 12.8 (11.5-15.5) % Plt Count 365 (150-450) k/uL MPV 7.9 Neutrophils % 76 % Lymphocytes % 15 % Monocytes % 7 % Eosinophils % 0 % Basophils % 0 % Neutrophils # 7.9 H (1.3-7.7) k/uL Lymphocytes # 1.5 (1.0-4.8) k/uL Monocytes # 0.7 (0-1.0) k/uL Eosinophils # 0.1 (0-0.7) k/uL Basophils # 0.0 (0-0.2) k/uL PT 10.6 (9.0-12.0) sec INR 1.0 (<1.2) APTT 23.8 (22.0-30.0) sec D-Dimer 1.17 H (<0.60) mg/L FEU Sodium 138 (137-145) mmol/L Potassium 4.2 (3.5-5.1) mmol/L Chloride 101 (98-107) mmol/L Carbon Dioxide 28 (22-30) mmol/L Anion Gap 9 mmol/L BUN 20 H (7-17) mg/dL Creatinine 1.31 H (0.52-1.04) mg/dL Est GFR (CKD-EPI)AfAm 47 (>60 ml/min/1.73 sqM) Est GFR (CKD-EPI)NonAf 41 (>60 ml/min/1.73 sqM) Glucose 108 H (74-99) mg/dL Plasma Lactic Acid Christoph (0.7-2.0) mmol/L Calcium 8.8 (8.4-10.2) mg/dL Total Bilirubin 0.4 (0.2-1.3) mg/dL AST 78 H (14-36) U/L ALT 37 H (4-34) U/L Alkaline Phosphatase 163 H (38-126) U/L Troponin I (0.000-0.034) ng/mL NT-Pro-B Natriuret Pep pg/mL Total Protein 7.4 (6.3-8.2) g/dL Albumin 4.4 (3.5-5.0) g/dL Coronavirus (PCR) (Not Detectd) Influenza Type A RNA (Not Detectd) Influenza Type B (PCR) (Not Detectd) 06/16/22 06/16/22 06/16/22 Range/Units 16:35 16:35 16:35 WBC (3.8-10.6) k/uL RBC (3.80-5.40) m/uL Hgb (11.4-16.0) gm/dL Hct (34.0-46.0) % MCV (80.0-100.0) fL MCH (25.0-35.0) pg MCHC (31.0-37.0) g/dL RDW (11.5-15.5) % Plt Count (150-450) k/uL MPV Neutrophils % % Lymphocytes % % Monocytes % % Eosinophils % % Basophils % % Neutrophils # (1.3-7.7) k/uL Lymphocytes # (1.0-4.8) k/uL Monocytes # (0-1.0) k/uL Eosinophils # (0-0.7) k/uL Basophils # (0-0.2) k/uL PT (9.0-12.0) sec INR (<1.2) APTT (22.0-30.0) sec D-Dimer (<0.60) mg/L FEU Sodium (137-145) mmol/L Potassium (3.5-5.1) mmol/L Chloride (98-107) mmol/L Carbon Dioxide (22-30) mmol/L Anion Gap mmol/L BUN (7-17) mg/dL Creatinine (0.52-1.04) mg/dL Est GFR (CKD-EPI)AfAm (>60 ml/min/1.73 sqM) Est GFR (CKD-EPI)NonAf (>60 ml/min/1.73 sqM) Glucose (74-99) mg/dL Plasma Lactic Acid Christoph 1.3 (0.7-2.0) mmol/L Calcium (8.4-10.2) mg/dL Total Bilirubin (0.2-1.3) mg/dL AST (14-36) U/L ALT (4-34) U/L Alkaline Phosphatase (38-126) U/L Troponin I <0.012 (0.000-0.034) ng/mL NT-Pro-B Natriuret Pep 31 pg/mL Total Protein (6.3-8.2) g/dL Albumin (3.5-5.0) g/dL Coronavirus (PCR) (Not Detectd) Influenza Type A RNA (Not Detectd) Influenza Type B (PCR) (Not Detectd) 06/16/22 06/16/22 Range/Units 16:35 16:35 WBC (3.8-10.6) k/uL RBC (3.80-5.40) m/uL Hgb (11.4-16.0) gm/dL Hct (34.0-46.0) % MCV (80.0-100.0) fL MCH (25.0-35.0) pg MCHC (31.0-37.0) g/dL RDW (11.5-15.5) % Plt Count (150-450) k/uL MPV Neutrophils % % Lymphocytes % % Monocytes % % Eosinophils % % Basophils % % Neutrophils # (1.3-7.7) k/uL Lymphocytes # (1.0-4.8) k/uL Monocytes # (0-1.0) k/uL Eosinophils # (0-0.7) k/uL Basophils # (0-0.2) k/uL PT (9.0-12.0) sec INR (<1.2) APTT (22.0-30.0) sec D-Dimer (<0.60) mg/L FEU Sodium (137-145) mmol/L Potassium (3.5-5.1) mmol/L Chloride (98-107) mmol/L Carbon Dioxide (22-30) mmol/L Anion Gap mmol/L BUN (7-17) mg/dL Creatinine (0.52-1.04) mg/dL Est GFR (CKD-EPI)AfAm (>60 ml/min/1.73 sqM) Est GFR (CKD-EPI)NonAf (>60 ml/min/1.73 sqM) Glucose (74-99) mg/dL Plasma Lactic Acid Christoph (0.7-2.0) mmol/L Calcium (8.4-10.2) mg/dL Total Bilirubin (0.2-1.3) mg/dL AST (14-36) U/L ALT (4-34) U/L Alkaline Phosphatase (38-126) U/L Troponin I (0.000-0.034) ng/mL NT-Pro-B Natriuret Pep pg/mL Total Protein (6.3-8.2) g/dL Albumin (3.5-5.0) g/dL Coronavirus (PCR) Detected A (Not Detectd) Influenza Type A RNA Not Detected (Not Detectd) Influenza Type B (PCR) Not Detected (Not Detectd) - EKG Data EKG Comments: EKG demonstrates sinus rhythm with a rate of 80. TX interval 149. QRS 85. QTC of 432. No acute ST segment elevations or depressions Disposition Clinical Impression: COVID-19 Disposition: HOME SELF-CARE Condition: Stable Instructions (If sedation given, give patient instructions): COVID-19 (Coronavirus Disease 2019) (ED) Additional Instructions: Take the prednisone and Paxlovid as directed. Use the Zofran as needed for nausea. Follow up with your doctor and return for any new or worsening symptoms Prescriptions: dexAMETHasone [Decadron] 6 mg PO DAILY #5 tablet Nirmatrelvir/Ritonavir [Paxlovid 150-100 mg Pack (Eua)] 1 each PO BID #1 packet Ondansetron Odt [Zofran Odt] 4 mg PO Q8HR PRN #15 tab PRN Reason: Nausea Is patient prescribed a controlled substance at d/c from ED?: No Referrals: Darryl Fried MD [Primary Care Provider] - 1-2 days Time of Disposition: 20:14
[2022-06-16 18:33] LABS: Basophils % (A) 0 %; Eosinophils # (A) 0.1 k/uL (0-0.7); Eosinophils % (A) 0 %; HCT 41.7 % (34.0-46.0); HGB 14.1 gm/dL (11.4-16.0); Lymphocytes # (A) 1.5 k/uL (1.0-4.8); Lymphocytes % (A) 15 %; MCH 29.6 pg (25.0-35.0); MCHC 33.9 g/dL (31.0-37.0); MCV 87.4 fL (80.0-100.0); Mean Platelet Volume 7.9; Monocytes # (A) 0.7 k/uL (0-1.0); Monocytes % (A) 7 %; Neutrophils # (A) 7.9 k/uL (1.3-7.7); Neutrophils % (A) 76 %; Platelet Count 365 k/uL (150-450); RBC 4.77 m/uL (3.80-5.40); RDW 12.8 % (11.5-15.5); WBC 10.3 k/uL (3.8-10.6)
--- NOTE | 2022-06-16 19:14 | CT ---
EXAMINATION TYPE: CT chest angio for PE CT DLP: 354.7 mGycm, Automated exposure control for dose reduction was used. DATE OF EXAM: 06/16/2022 6:44 PM COMPARISON: Chest radiograph same day. CLINICAL INDICATION:Female, 72 years old with history of elevated d-dimer; SOB and covid +. elevated ddimer TECHNIQUE/CONTRAST: CTA scan of the thorax is performed with IV Contrast, patient injected with 68ml mL of Isovue 370, pu lmonary embolism protocol. MIP images are created and reviewed these are created on a separate works tation.. FINDINGS: Pulmonary Artery: There is no evidence for a filling defect within the pulmonary vasculature to sugge st acute pulmonary embolism. The pulmonary artery is of normal size. Lungs/Pleura: No evidence of focal consolidation, pleural effusion or pneumothorax. Airway: Large airways are patent. Heart: Heart is within normal limits for size. Vasculature: No evidence of aortic aneurysm. Calcified and noncalcified plaque is seen throughout the arterial vasculature. Mediastinum: No gross evidence of adenopathy. Musculoskeletal: No acute osseous abnormalities, mild multilevel disc degeneration changes. Soft Tissues: Unremarkable. Lower neck: No significant findings. Upper Abdomen: Scattered hepatic cysts. IMPRESSION: 1. No evidence of pulmonary embolism. 2. No acute thoracic process.
[2022-06-16] MEDS ORDERED: METOCLOPRAMIDE 5 MG/ML 2 ML VIAL IVP STA (19:45)
[2022-06-16] MEDS ORDERED: diphenhydrAMINE 50 MG/ML 1 ML VIAL IVP STA (19:45)
[2022-06-16] MEDS ORDERED: DEXAMETHASONE SOD PHOSPHATE 10 MG/ML 1 ML VIAL IVP STA (19:46)
[2022-06-16 19:59] VITALS: BP 127/57; PULSE 80; RESP 16
[2022-06-16] MEDS ORDERED: ONDANSETRON 4 MG ODT STARTER PACK 2 TAB BTL PO STA (20:09)
== END 2022-06-16 20:42 | disposition home or self-care (01) ==
LOC: EC 15:18
DX: U07.1 COVID-19 (principal); E78.5 Hyperlipidemia, unspecified; F32.A Depression, unspecified; F41.9 Anxiety disorder, unspecified; K21.9 Gastro-esophageal reflux disease without esophagitis; I10 Essential (primary) hypertension; F17.200 Nicotine dependence, unspecified, uncomplicated; Z79.52 Long term (current) use of systemic steroids; Z79.899 Other long term (current) drug therapy; Z88.0 Allergy status to penicillin
CPT/HCPCS: 36415; 93005; 85379; 83880; 80053; 83605; 84484; 85025; 85610; 85730; 87502; 87635; 71046; 71275; 99285; 96374; 96375 ×3; 96361; J1200; J1100; J2765; J2405; S0119; Q9967

== ENCOUNTER → 2023-09-10 | Outpatient (CLI) | payer MEDICARE ==
--- NOTE | 2023-09-13 09:33 | MM ---
Reason for Exam: Screening (asymptomatic). Last mammogram was performed 1 year(s) and 1 month(s) ago. Patient History: Menarche at age 13. First Full-Term at age 22. Left ovary removed at age 40. Right ovary removed at age 40. Hysterectomy at age 40. Postmenopausal. Patient used Hormonal Contraceptives for 10 years. Maternal half sister had breast cancer, age 58. Risk Values: Vivienne 5 year model risk: 1.6%. NCI Lifetime model risk: 4.1%. Prior Study Comparison: 05/15/2021 Bilateral Screening Mammogram, [facility]. 05/28/2021 Right Diagnostic Mammogram, [facility]. 07/23/2022 Bilateral MG 3D screening mammo w/cad, [facility]. Tissue Density: The breasts are heterogeneously dense, which may obscure small masses. Findings: Analyzed By CAD. There is no suspicious group of microcalcifications or new suspicious mass in either breast. Overall Assessment: Benign, BI-RAD 2 Management: Screening Mammogram of both breasts in 1 year. . Patient should continue monthly self-breast exams. A clinical breast exam by your physician is recommended on an annual basis. This exam should not preclude additional follow-up of suspicious palpable abnormalities. Note on Vivienne scores and lifetime risk: 1. A Vivienne score greater than 3% is considered moderate risk. If this is the case, consider specialist referral to assess eligibility for a risk reducing agent. 2. If overall lifetime risk for the development of breast cancer is 20% or higher, the patient may qualify for future screening with alternating mammogram and breast MRI. Electronically signed and approved by: Saud Shaw M.D. Radiologis
== END | disposition home or self-care (01) ==
LOC: RADMAMWWP 10:06
PROVIDERS: ATTEND Family Medicine
DX: Z12.31 Encounter for screening mammogram for malignant neoplasm of breast (principal); Z80.3 Family history of malignant neoplasm of breast; Z78.0 Asymptomatic menopausal state
CPT/HCPCS: 77063; 77067

== ENCOUNTER → 2024-09-05 | Outpatient (CLI) | payer MEDICARE ==
--- NOTE | 2024-09-05 15:54 | XR ---
EXAMINATION TYPE: XR lumbosacral spine 5 views, XR Hip Bilateral 2 views each side Complete DATE OF EXAM: 09/05/2024 3:13 PM COMPARISON: Lumbar spine 02/27/2020 CLINICAL INDICATION: Female, 74 years old with history of M16.9, M51.369; PHH, chronic back and hip p ain FINDINGS: Lumbar spine: 5 lumbar type vertebral bodies. Hypertrophic facet arthropathy lower lumbar spine. No pars interartic ularis defect. Moderate degenerative disc disease throughout the upper lumbar spine with disc space n arrowing and endplate spondylosis. There is degenerative grade 1 retrolisthesis L1-L2 and L2-L3. Grad e 1 anterolisthesis L4-L5. Vertebral body heights are preserved. Changes progressed from 2019. Bilateral hips: There is mild marginal spurring at the hips. Possible minimal adnexal joint space narrowing. Overall hip joint spaces relatively maintained. No acute fracture, subluxation, or dislocation. IMPRESSION: 1. Lumbar spine: Hypertrophic facet arthropathy especially lower lumbar spine. Moderate degenerative disc disease upper lumbar spine. There is degenerative grade 1 spondylolisthesis L1-L2, L2-L3, L4-L5. No vertebral compression collapse. 2. Bilateral hips: Only mild degenerative spurring of the hips but with relative preservation of join t space. No acute osseous abnormality seen. [facility], Workstation: [email or web address], 09/05/2024 3:52 PM
== END | disposition home or self-care (01) ==
LOC: RADXRMAIN 14:23
PROVIDERS: ATTEND Family Medicine
DX: M51.369 Other intervertebral disc degeneration, lumbar region without mention of lumbar back pain or lower extremity pain (principal); M43.16 Spondylolisthesis, lumbar region; M16.0 Bilateral primary osteoarthritis of hip
CPT/HCPCS: 72110; 73521

== ENCOUNTER → 2024-09-12 | Outpatient (CLI) | payer MEDICARE ==
--- NOTE | 2024-09-13 07:39 | MM ---
Reason for Exam: Screening (asymptomatic). Last screening mammogram was performed 12 month(s) ago. Patient History: Menarche at age 13. First Full-Term at age 22. Left ovary removed at age 40. Right ovary removed at age 40. Hysterectomy at age 40. Postmenopausal. Patient used Hormonal Contraceptives for 10 years. Maternal half sister had breast cancer, age 58. Risk Values: Vivienne 5 year model risk: 1.6%. NCI Lifetime model risk: 3.9%. Prior Study Comparison: 05/28/2021 Right Diagnostic Mammogram, [facility]. 07/23/2022 Bilateral MG 3D screening mammo w/cad, [facility]. 09/10/2023 Bilateral MG 3D screening mammo w/cad, [facility]. Tissue Density: The breasts are heterogeneously dense, which may obscure small masses. Findings: Analyzed By CAD. There is no suspicious group of microcalcifications or new suspicious mass in either breast. Overall Assessment: Benign, BI-RAD 2 Management: Screening Mammogram of both breasts in 1 year. . Patient should continue monthly self-breast exams. A clinical breast exam by your physician is recommended on an annual basis. This exam should not preclude additional follow-up of suspicious palpable abnormalities. Note on Vivienne scores and lifetime risk: 1. A Vivienne score greater than 3% is considered moderate risk. If this is the case, consider specialist referral to assess eligibility for a risk reducing agent. 2. If overall lifetime risk for the development of breast cancer is 20% or higher, the patient may qualify for future screening with alternating mammogram and breast MRI. [facility], , 09/13/2024 7:36 AM. Electronically signed and approved by: Saud Shaw M.D. Radiologis
--- NOTE | 2024-09-13 14:30 | BD ---
EXAMINATION TYPE: Axial Bone Density DATE OF EXAM: 09/12/2024 CLINICAL HISTORY: 74 years old Female. ICD-10 CODE: Z78.0 MENOPAUSAL STATE , Additional History: Height: 60.5 Weight: 159 FRAX RISK QUESTIONS: Family History (Parent hip fracture): no History of Fracture in Adulthood: yes Secondary Osteoporosis: yes 3. Menopause before 45: yes Current Tobacco Use: yes RISK FACTORS HISTORY OF: Surgery to Spine/Hip(right/left)/Wrist (right/left): no MEDICATIONS: Thyroid Medications: no Osteoporosis Medications: no EXAM MEASUREMENTS: Bone mineral densitometry was performed using the [employer] System. Bone mineral density as measured about the Lumbar spine is: ----- L1-L4(G/cm2): 1.083 T Score Values are as follows: ----- L1: -0.3 ----- L2: 0.6 ----- L3: -0.9 ----- L4: -2.4 ----- L1-L4: -0.8 Z Score Values are as follows: ----- L1: 1.2 ----- L2: 2.1 ----- L3: 0.6 ----- L4: -0.9 ----- L1-L4: 0.7 Bone mineral density has: Decreased -0.6% since study of: 05/13/2020 Bone mineral density about the R hip (g/cm2): 0.954 Bone mineral density about the L hip (g/cm2): 0.974 T Score values are as follows: -----R Neck: -1.1 -----L Neck: -1.3 -----R Total: -0.4 -----L Total: -0.3 Z Score values are as follows: -----R Neck: 0.6 -----L Neck: 0.4 -----R Total: 1.0 -----L Total: 1.2 Bone mineral density has: Decreased -4.4% since study of: 05/13/2020 FRAX%s: The graph provided illustrates a 15.2% chance for a major osteoporotic fx and a 5.1% chance f or the hips probability for fx in 10 years time. IMPRESSION: Normal (Values between +1 and -1 indicate normal bone mass). Consider repeating this study in 5 year s or sooner if there is some new clinical indication. NOTE: T-SCORE=SD OF THE YOUNG ADULT MEAN. [facility], , 09/13/2024 2:28 PM
== END | disposition home or self-care (01) ==
LOC: RADMAMWWP 15:37
PROVIDERS: ATTEND Family Medicine
DX: Z12.31 Encounter for screening mammogram for malignant neoplasm of breast (principal); R92.333 Mammographic heterogeneous density, bilateral breasts; Z78.0 Asymptomatic menopausal state; Z80.3 Family history of malignant neoplasm of breast; Z92.0 Personal history of contraception; M16.9 Osteoarthritis of hip, unspecified
CPT/HCPCS: 77063; 77067; 77080

== ENCOUNTER → 2024-09-22 | Outpatient (CLI) | payer MEDICARE ==
--- NOTE | 2024-09-22 13:14 | US ---
EXAMINATION TYPE: US kidneys/renal and bladder DATE OF EXAM: 09/22/2024 COMPARISON: NONE CLINICAL INDICATION: Female, 74 years old with history of N18.31 CHRONIC KIDNEY DISEASE, STAGE 3A; TECHNIQUE: Grayscale imaging of the bilateral kidneys and urinary bladder: FINDINGS: EXAM MEASUREMENTS: Right Kidney: 9.3x3.7x5.3 cm Left Kidney: 10.2x4.3x4.3 cm Right Kidney: No hydronephrosis or masses seen Left Kidney: No hydronephrosis or masses seen Bladder: wnl Bilateral Jets seen: Yes There is no evidence for hydronephrosis at this point in time. No nephrolithiasis is seen. No janice s are identified. The urinary bladder is anechoic. IMPRESSION: No discrete abnormality [facility], , 09/22/2024 1:12 PM
== END | disposition home or self-care (01) ==
LOC: RADUSWWP 12:51
PROVIDERS: ATTEND Family Medicine
DX: N18.31 Chronic kidney disease, stage 3a (principal)
CPT/HCPCS: 76770